=== PATIENT | male | born 2005 | race African-American/Black ===

== ENCOUNTER 2024-11-02 11:47 | Emergency (ER) | payer SELFPAY ==
[2024-11-02 12:08] VITALS: BP 97/51; PULSE 101; RESP 16; BMI 23.7
[2024-11-02] MEDS ORDERED: ACETAMINOPHEN 325 MG TABLET (FP) ONE (13:02)
[2024-11-02] MEDS: ACETAMINOPHEN 325 MG TABLET (FP) PO ONE (13:06)
[2024-11-02 14:34] VITALS: TEMP 98.2
== END 2024-11-02 14:35 | disposition home or self-care (01) ==
LOC: JERFT 11:47
DX: J10.1 Influenza due to other identified influenza virus with other respiratory manifestations (principal); J06.9 Acute upper respiratory infection, unspecified; R50.9 Fever, unspecified; J02.9 Acute pharyngitis, unspecified; M79.10 Myalgia, unspecified site; R05.9 Cough, unspecified; Z20.822 Contact with and (suspected) exposure to COVID-19
CPT/HCPCS: 0241U-QW; 99283-25